=== PATIENT | female | born 1990 | race African-American/Black ===

== ENCOUNTER 2017-05-30 00:43 | Emergency (ER) | payer SELFPAY ==
[~2017-05-30] VITALS: Ht 152.4 cm; Wt 44.5 kg
[~2017-05-30 00:43] MED LIST: NORCO 325 MG-51 TAB PO; PEN-VEE K500 MG PO
[2017-05-30 00:46] VITALS: TEMP 98
[2017-05-30] MEDS ORDERED: AMOXICILLIN 50500 MG PO (01:09)
[2017-05-30 01:25] VITALS: BP 131/81; PULSE 79
== END 2017-05-30 01:25 | disposition home or self-care (01) ==
LOC: COL.ER 00:43
DX: K02.9 Dental caries, unspecified (principal); F32.9 Major depressive disorder, single episode, unspecified; F17.210 Nicotine dependence, cigarettes, uncomplicated; Z98.818 Other dental procedure status

== ENCOUNTER → 2019-01-18 | Outpatient (CLI) | payer OTHER ==
[~2019-01-18] MED LIST changes: +AMOXICILLIN 50500 MG PO; +AMOXICILLIN 8751 TAB PO; +CLEOCIN HCL300 MG PO; +PERCOCET 325 MG1 TA2 PO
== END ==
LOC: COL.RAD 14:45
DX: M54.2 Cervicalgia (principal); W19.XXXA Unspecified fall, initial encounter

== ENCOUNTER 2019-05-23 13:51 | Emergency (ER) | payer SELFPAY ==
[~2019-05-23] VITALS: Ht 152.4 cm; Wt 54.5 kg
[2019-05-23 16:11] LABS: COLLECTION METHOD CLEAN CATCH
[2019-05-23 16:17] LABS: BASO # 0.1 (0.0-0.2); BASO % 0.8 % (0.0-2.0); EOS # 0.2 (0.0-0.7); EOS % 2.7 % (0-4.0); GRAN # 2.7 (1.4-6.5); GRAN % 43.3 % (42.2-75.2); HEMATOCRIT 39.7 % (37.0-47.0); HEMOGLOBIN 13.1 g/dl (12.5-16.0); LYMPH # 2.9 (1.2-3.4); LYMPH % 45.2 % (20.0-51.0); MEAN CELL VOLUME 89 fl (80.0-100.0); MEAN CORPUSCULAR HEMOGLOBIN 29 pg (27.0-31.0); MEAN CORPUSCULAR HGB CONC 33 g/dl (33.0-37.0); MONO # 0.5 (0.1-0.6); MONO % 7.7 % (1.7-9.3); PLATELET COUNT 301 K/mm3 (130-400); RED BLOOD COUNT 4.48 M/mm3 (4.10-5.30); REDCELL DISTRIBUTION WIDTH-CV 12.4 % (11.5-14.5)
[2019-05-23 16:20] LABS: PH 9 (5-8); SQUAMOUS EPITHELIAL 0-2 /hpf; URINE APPEARANCE Clear; URINE BACTERIA None Seen /hpf; URINE BILIRUBIN Negative (NEGATIVE); URINE BLOOD Negative (NEGATIVE); URINE COLOR Colorless; URINE GLUCOSE Negative (NEGATIVE); URINE KETONE Negative (NEGATIVE); URINE LEUKOCYTE ESTERASE Negative (NEGATIVE); URINE NITRATE Negative (NEGATIVE); URINE PROTEIN(semi-quant) Negative (NEGATIVE); URINE RBC 0-2 /hpf; URINE UROBILINOGEN Negative (NEGATIVE)
[2019-05-23 16:31] LABS: ALANINE AMINOTRANSFERASE 19 U/L (9-52); ALBUMIN 4.7 gm/dL (3.5-5.0); ALKALINE PHOSPHATASE 78 U/L (50-136); ANION GAP 8 mmol/L (7-16); AST,SGOT 31 U/L (15-37); BILIRUBIN,TOTAL 0.3 mg/dL (0.0-1.0); BLOOD UREA NITROGEN 9 mg/dL (7-17); CALCIUM 9.7 mg/dL (8.4-10.2); CARBON DIOXIDE 29 mmol/L (22-30); CHLORIDE 101 mmol/L (98-107); CREATININE, serum 0.62 (0.52-1.25); GLUCOSE 78 mg/dL (74-106); POTASSIUM 3.8 mmol/L (3.4-5.0); SODIUM 139 mmol/L (137-145); TOTAL PROTEIN 8.1 gm/dL (6.4-8.2)
[2019-05-23 16:39] LABS: C-REACTIVE PROTEIN < 0.5 mg/dL (0.0-0.9)
[2019-05-23 17:21] VITALS: BP 116/76; PULSE 79; TEMP 98.1
== END 2019-05-23 17:21 | disposition home or self-care (01) ==
LOC: COL.ER 13:51
PROVIDERS: Physician Assistant
DX: R10.11 Right upper quadrant pain (principal)

== ENCOUNTER 2020-05-11 16:21 | Emergency (ER) | payer SELFPAY ==
[~2020-05-11] VITALS: Ht 152.4 cm; Wt 59.5 kg
[2020-05-11 16:33] VITALS: TEMP 98.4
[2020-05-11 18:19] VITALS: BP 123/82; PULSE 91
== END 2020-05-11 18:20 | disposition home or self-care (01) ==
LOC: COL.ER 16:21
DX: R07.89 Other chest pain (principal); F41.9 Anxiety disorder, unspecified; F32.9 Major depressive disorder, single episode, unspecified

== ENCOUNTER 2022-12-10 00:09 | Emergency (ER) | payer SELFPAY ==
[~2022-12-10] VITALS: Ht 152.4 cm; Wt 55.0 kg
[2022-12-10 00:21] VITALS: BP 145/69; PULSE 78; TEMP 98.5
[2022-12-10] MEDS ORDERED: CLEOCIN HCL300 MG PO (00:47)
== END 2022-12-10 00:57 | disposition home or self-care (01) ==
LOC: COL.ER 00:09
DX: K04.7 Periapical abscess without sinus (principal)

== ENCOUNTER 2023-06-22 07:23 | Emergency (ER) | payer BC ==
[~2023-06-22] VITALS: Ht 152.4 cm; Wt 56.8 kg
[2023-06-22 07:28] VITALS: TEMP 98.1
[2023-06-22 07:42] LABS: COLLECTION METHOD CLEAN CATCH
[2023-06-22 08:09] LABS: URINE APPEARANCE Clear (CLEAR/HAZY); URINE BLOOD Negative (NEGATIVE); URINE COLOR Yellow (YELLOW); URINE GLUCOSE Negative (NEGATIVE); URINE KETONE Negative (NEGATIVE); URINE NITRATE Negative (NEGATIVE); URINE PROTEIN(semi-quant) Negative (NEGATIVE); URINE UROBILINOGEN 0.2 E.U/dL (0.2-1.0)
[2023-06-22 08:10] LABS: MUCOUS Present (NOT PRESENT); SQUAMOUS EPITHELIAL 0-2 /hpf (0-10); URINE BACTERIA Rare /hpf (NONE SEEN); URINE RBC None Seen /hpf (0-2)
[2023-06-22 08:15] LABS: BASO # 0.1 K/mm3 (0.0-0.2); BASO % 0.8 % (0.0-2.0); EOS # 0.1 K/mm3 (0.0-0.7); GRAN # 2.3 K/mm3 (1.4-6.5); GRAN % 34.8 % (42.2-75.2); HEMOGLOBIN 11.7 g/dl (12.5-16.0); LYMPH # 3.7 K/mm3 (1.2-3.4); LYMPH % 55.5 % (20.0-51.0); MEAN CELL VOLUME 89 fl (80.0-100.0); MEAN CORPUSCULAR HEMOGLOBIN 30 pg (27-31); MEAN CORPUSCULAR HGB CONC 33 g/dl (33.0-37.0); MEAN PLATELET VOLUME 9.2 fl (7.4-10.4); MONO # 0.4 K/mm3 (0.1-0.6); MONO % 6.7 % (1.7-9.3); PLATELET COUNT 337 K/mm3 (130-400); RED BLOOD COUNT 3.94 M/mm3 (4.10-5.30); REDCELL DISTRIBUTION WIDTH-CV 12.2 % (11.5-14.5)
[2023-06-22 08:18] LABS: HEMATOCRIT 35.2 % (37.0-47.0)
[2023-06-22 08:34] LABS: BILIRUBIN,TOTAL 0.4 mg/dL (0.2-1.2); CALCIUM 9.1 mg/dL (8.4-10.2); CREATININE, serum 0.84 mg/dL (0.57-1.11); POTASSIUM 3.5 mmol/L (3.5-4.5); TOTAL PROTEIN 6.9 gm/dL (6.2-8.1)
[2023-06-22] MEDS ORDERED: PEPCID AC 10MG10 MG PO (10:21)
[2023-06-22] MEDS ORDERED: BENTYL 10MG10 MG/CAP PO (10:21)
[2023-06-22 10:50] VITALS: BP 104/70; PULSE 84
== END 2023-06-22 10:50 | disposition home or self-care (01) ==
LOC: COL.ER 07:23
PROVIDERS: Emergency Medicine
DX: R10.9 Unspecified abdominal pain (principal)
CPT/HCPCS: J2405